=== PATIENT | male | born 1945 | race Caucasian/White ===

== ENCOUNTER 2018-01-05 10:54 | Emergency (ER) | payer MEDICARE, BC ==
[2018-01-05] MEDS ORDERED: SOLUMEDROL 125 MG/2 ML 125 MG/2 ML PDS IV ONE (10:57)
[2018-01-05] MEDS ORDERED: DIPHENHYDRAMINE 50 MG/ML SOL IV ONE (10:57)
[2018-01-05 11:07] VITALS: RESP 18; O2SAT 100
[2018-01-05 11:15] LABS: BASOPHILS % (AUTO) 1 % (0-3); EOSINOPHILS % (AUTO) 2 % (0-9); HEMATOCRIT 47 % (39-53); HEMOGLOBIN 16.7 gm/dl (13.5-17.7); LYMPHOCYTES % (AUTO) 21.4 % (10-50); MEAN CORPUSCULAR HEMOGLOBIN 30.9 pg (27.0-32.0); MEAN CORPUSCULAR HGB CONC 35.6 gm/dl (32.0-36.0); MEAN CORPUSCULAR VOLUME 87 fL (80-100); NEUTROPHILS % (AUTO) 65.9 % (37-80)
[2018-01-05] MEDS ORDERED: SODIUM CHLORIDE 0.9% 1000 ML SOL IV ONE (11:15)
[2018-01-05 11:27] LABS: ALBUMIN 3.6 gm/dl (3.4-5.0); BILIRUBIN,TOTAL 0.9 mg/dl (0.2-1.0); CALCIUM 8.5 mg/dl (8.5-10.1); CARBON DIOXIDE 26.3 mEq/L (21-32); CREATININE 0.98 mg/dl (0.80-1.30); POTASSIUM 4.1 mMol/L (3.5-5.1); TOTAL PROTEIN 7.2 gm/dl (6.4-8.2)
[2018-01-05 13:53] VITALS: BP 124/75; PULSE 77; TEMP 97.3
== END 2018-01-05 13:45 | disposition home or self-care (01) | DRG 918 ==
LOC: ED 10:54
DX: T50.8X5A Adverse effect of diagnostic agents, initial encounter (principal); I65.23 Occlusion and stenosis of bilateral carotid arteries; L50.9 Urticaria, unspecified; R51 Headache
CPT/HCPCS: 36415; 70544; 70549; 70553; 71045; 80053; 85025; 93005; 96365; 96374; 96375; 99283; 99284; J1200; J2930; A9585